=== PATIENT | male | born 1935 | race Caucasian/White ===

== ENCOUNTER 2019-11-14 06:01 | Emergency (ER) | payer MEDICARE, OTHER ==
[~2019-11-14] VITALS: Ht 172.7 cm; Wt 72.6 kg
[~2019-11-14 06:01] MED LIST: AMBIEN 5 MG TABL5 M1 PO; ASPIRIN81 M2 PO; AUGMENTIN 875-1 EACH PO; CARDURA1 MG PO; CARDURA4 MG; CRESTOR10 MG PO; CRESTOR5 MG PO; FISH OIL 1,001000 M1 PO; FISHOIL; HTN MED; LOTENSIN20 MG PO; MINIPRIN81 MG; NORVASC10 MG PO; PHENERGAN 25 MG25 M1 PO; PREDNISONE 10 M10 MG PO; PROBIOTIC DIGE1 EACH PO; PROSCAR 5MG TABL5 M1 PO; TUSSIONEX PENN473 ML PO; VENTOLIN HFA 1818 GM INH; ZOFRAN ODT4 MG SUBLING; ZPAK PO; [UNRECOGNIZED DRUG - OTHER]; [UNRECOGNIZED DRUG - REMARK]
[2019-11-14] MEDS ORDERED: NORCO 5-325 TA1 EAC1 PO (08:48)
[2019-11-14 09:26] VITALS: BP 149/66
== END 2019-11-14 09:27 | disposition home or self-care (01) ==
LOC: M.ERS 06:01
DX: S42.211A Unspecified displaced fracture of surgical neck of right humerus, initial encounter for closed fracture (principal); I10 Essential (primary) hypertension; Z90.49 Acquired absence of other specified parts of digestive tract; Z88.1 Allergy status to other antibiotic agents; Z88.8 Allergy status to other drugs, medicaments and biological substances; W01.0XXA Fall on same level from slipping, tripping and stumbling without subsequent striking against object, initial encounter; Y93.89 Activity, other specified; Y92.89 Other specified places as the place of occurrence of the external cause; Y99.8 Other external cause status